=== PATIENT | female | born 1975 | race Caucasian/White ===

== ENCOUNTER 2017-02-01 12:58 | Emergency (ER) | payer OTHER ==
[2017-02-01 13:02] VITALS: BP 105/70
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
[2017-02-01] MEDS ORDERED: ERYTHROMYCIN250 M1 PO (13:16)
[2017-02-01] MEDS ORDERED: FINACEA50 GM TOP (13:16)
[2017-02-01] MEDS ORDERED: RESTASIS1 EACH OS (13:17)
[2017-02-01] MEDS ORDERED: BETAMETHASONE D15 G4 TOP (13:18)
[2017-02-01] MEDS ORDERED: IBUPROFEN800 M1 PO (13:38)
[2017-02-01] MEDS ORDERED: CYCLOBENZAPRINE5 M2 PO (13:38)
== END 2017-02-01 13:56 ==
LOC: ERH 12:58
DX: S16.1XXA Strain of muscle, fascia and tendon at neck level, initial encounter (principal); S29.012A Strain of muscle and tendon of back wall of thorax, initial encounter; V49.40XA Driver injured in collision with unspecified motor vehicles in traffic accident, initial encounter; Y92.410 Unspecified street and highway as the place of occurrence of the external cause